=== PATIENT | female | born 1980 | race African-American/Black ===

== ENCOUNTER 2022-04-29 19:16 | Emergency (ER) | payer OTHER ==
[~2022-04-29] VITALS: Ht 162.6 cm; Wt 82.7 kg
[2022-04-29 19:34] VITALS: BP 142/86
[2022-04-29 20:15] LABS: COVID AG,FIA SOURCE NASAL SWAB
[2022-04-29 21:56] LABS: APPEARANCE,URINE CLEAR (CLEAR); BILIRUBIN,URINE NEGATIVE (NEGATIVE); GLUCOSE, URINE (UA) NEGATIVE (NEGATIVE); KETONES,URINE NEGATIVE (NEGATIVE); LEUKOCYTE ESTERASE ,URINE NEGATIVE (NEGATIVE); NITRATE,URINE NEGATIVE (NEGATIVE); OCCULT BLOOD,URINE LARGE (NEGATIVE); PH,URINE 6.5 (5.0-8.0); PROTEIN,URINE NEGATIVE (NEGATIVE); SPECIFIC GRAVITIY, URINE 1.007 (1.003-1.030); UROBILINOGEN,URINE <=1.0 mg/dL (<=1.0)
[2022-04-29 22:15] LABS: RAPID GROUP A STREP NEGATIVE (NEGATIVE)
[2022-04-29 22:16] LABS: INFLUENZA TYPE A NEGATIVE FOR TYPE A (NEGATIVE); INFLUENZA TYPE B NEGATIVE FOR TYPE B (NEGATIVE)
[2022-04-29 22:34] LABS: BACTERIA,URINE None Seen /HPF (None Seen); SQUAMOUS EPITHELIAL CELL,UR Few /LPF (None Seen); WBC,URINE None Seen /HPF (0-5)
== END 2022-04-29 23:09 | disposition home or self-care (01) ==
LOC: EMS 19:23
DX: J02.8 Acute pharyngitis due to other specified organisms (principal); R31.9 Hematuria, unspecified; Z20.822 Contact with and (suspected) exposure to COVID-19; Z98.890 Other specified postprocedural states
CPT/HCPCS: 81001; 82962; 87430; 87804; 99283

== ENCOUNTER 2022-08-04 08:19 | Emergency (ER) | payer OTHER ==
[~2022-08-04] VITALS: Ht 170.2 cm; Wt 84.1 kg
[2022-08-04 08:21] VITALS: BP 112/88
[2022-08-04 09:03] LABS: COVID AG,FIA SOURCE NASAL SWAB
[2022-08-04] MEDS ORDERED: AMOX250C4 PO (09:39)
[2022-08-04] MEDS ORDERED: KETOROLAC TROMETHAMINE 30 MG/ML VIAL IM ONE (09:45)
== END 2022-08-04 09:56 | disposition home or self-care (01) ==
LOC: EMS 08:20
DX: J02.0 Streptococcal pharyngitis (principal); Z98.890 Other specified postprocedural states; Z20.822 Contact with and (suspected) exposure to COVID-19
CPT/HCPCS: 99284; 71045; 87426; 87430; 96372; J1885